=== PATIENT | female | born 1955 | race Caucasian/White ===

== ENCOUNTER 2024-06-25 12:03 | Emergency (ER) | payer MEDICARE, SELFPAY ==
--- NOTE | 2024-06-25 12:00 | RT.EKG_ITS ---
APPROVED REPORT Exam: Resting ECG Reason for Exam: weakness Patient Location: E HR:52 bpm ECG Measurements Heart Rate 52 AXIS HI 140 P 0 QRSd 91 QRS 31 QT 447 T 74 QTc 417 Conclusion Sinus bradycardia...rate< 60 Narrow complex sinus bradycardia rate of 52. Normal axis. Intervals within normal limits. T wave i nversion in aVL. No ST segment abnormalities. No prior for comparison. No acute injury pattern.
[2024-06-25 12:06] VITALS: BP 109/61; PULSE 57; RESP 18; TEMP 36.7; O2SAT 97
--- NOTE | 2024-06-25 12:09 | W.ED.GENAD ---
Discharge Plan Disposition Patient Disposition: Eloped Condition: Stable Discharge Details Clinical Impression: Malaise Primary Care Provider: None,None ED Provider: Servando Barraza Home Meds and New Rx's Prescriptions: No Action No Known Home Meds Discharge Instructions Additional Instructions: Patient ripped out her own IV, was screaming and irate asked for other IV to be removed which was and then eloped without telling anyone. Discharge Data Discharge Date/Time-TO BE ENTERED AT DEPARTURE: 06/25/24 14:30 HPI General Date/Time Provider Initiated Documentation: 06/25/24 12:09. HPI Narrative: 69 year-old female presents to ED today by EMS with a chief complaint of generalized weakness, constellation of complaints ranging from abdominal pain, to two weeks of chest pain with exertion (but not today), nausea without intractable vomiting, headaches, and social complaints about housing, questions whether it started after being placed in a rental in [place] in the remote past which had cat urine soaked floors. Quality described as generalized weakness, shortness of breath, chest pain that has subsided, no radiation to fever, intractable nausea/vomiting, severe chest pain, profound shortness of breath, syncope, urinary retention, dysuria, constipation, diarrhea, black stools. Severity is described as severe. Palliating factors include nothing specific. Provoking factors include nothing specific. Events leading up to the incident/Associated Symptoms: Patient has not seen PCP in over one year, has bounced around from [place] to [place], to [place], and has been back in the [facility] for 1.5 weeks. Patient not anticoagulated. Related Data Home Medications ?Medication ?Instructions ?Recorded ?Confirmed Unknown [No Known Home Meds] 06/25/24 06/25/24 Allergies Allergy/AdvReac Type Severity Reaction Status Date / Time No Known Allergies Allergy Unverified 06/25/24 12:53 Review of Systems All systems reviewed & are unremarkable except as noted in HPI and below Exam Narrative Exam Narrative: GENERAL APPEARANCE: Well-nourished, non-toxic, awake and alert, atraumatic, no acute distress. SKIN: Warm, pink, dry, intact, without rashes/lesions/ulcerations. HEAD: Normocephalic, atraumatic, normal hair distribution for gender/age. EYES: Normal conjunctiva, no exudates on lids/lashes. ENT: Nares patent, no circumoral cyanosis, no facial swelling NECK: Supple, trachea midline, painless cervical ROM. LUNGS/CHEST: Lungs CTA bilaterally, non-labored respirations, normal A/P diameter, symmetrical expansion, no chest wall deformity HEART (CV/PV): Regular rate and rhythm without murmur, no peripheral edema, no JVD. ABDOMEN: Soft, non-distended, no guarding. MSK: Normal ROM, no swelling/deformity to bilateral UEs or LEs, moving all extremities without weakness, no cyanosis, spine midline without tenderness, normal curvature. NEURO: Mental Status AAOx4 - alert to person, place, time, events No facial droop, no forehead involvement. Motor: No focal weakness - strength 5/5 in bilateral UEs and LEs, proximal and distal, symmetric. Sensory: sensation intact to light touch globally. Gait normal: patient ambulated without ataxia into ED room. PSYCH: euthymic, cooperative, pleasant, appropriate speech Medical Decision Making This dictation utilizes [id number] dictation software and may contain unedited grammatical errors. 69 year-old female presents to ED today by EMS with a chief complaint of generalized weakness, constellation of complaints ranging from abdominal pain, to two weeks of chest pain with exertion (but not today), nausea without intractable vomiting, headaches, and social complaints about housing, questions whether it started after being placed in a rental in [place] in the remote past which had cat urine soaked floors. Quality described as generalized weakness, shortness of breath, chest pain that has subsided, no radiation to fever, intractable nausea/vomiting, severe chest pain, profound shortness of breath, syncope, urinary retention, dysuria, constipation, diarrhea, black stools. Severity is described as severe. Palliating factors include nothing specific. Provoking factors include nothing specific. Events leading up to the incident/Associated Symptoms: Patient has not seen PCP in over one year, has bounced around from [place] to [place], to [place], and has been back in the [facility] for 1.5 weeks. Patients' medical history: Outside record search-COPD, hyperlipidemia, diverticulosis, anxiety, insomnia, PTSD, postconcussion syndrome, nicotine dependence. Family and social history: recently moved to [place] back in [place] from [place], [facility]- was residing at a facility called [facility] [place] area- does not have PCP. Meds per outside record search: Clonazepam 0.5 mg 1 tablet daily, pantoprazole 40 mg p.o. daily, Rabeprazole 20 mg p.o. daily as needed, Tylenol 500 p.o. every 6 hours Allergies per outside record search: Morphine, egg, codeine, peanut, sulfa drugs, lactase, tree nuts, doxycycline Pertinent exam findings / vital signs include neuro intact, diffuse abdominal tenderness without peritoneal signs, benign cardiopulmonary status, nontoxic vitals, afebrile, sitting on the edge of the bed. Differential / pathologies of concern include generalized malaise, weakness, demand ischemia, sepsis, biliary colic, rhabdomyolysis, alcohol withdrawal, hepatic encephalopathy, electrolyte abnormality, dehydration, UTI, viral respiratory infection, social issues. Diagnostic studies of: -CBC, CMP, serial troponins, CK, lipase, lactate, procalcitonin, VBG, alcohol level, ammonia level, magnesium, urinalysis, COVID/flu/RSV PCR, XR chest, CT ABD/pelvis W contrast, EKG. -CBC shows no leukocytosis, no anemia -VBG is completely benign -CMP is unremarkable -Ammonia negative -Troponin negative with reliable onset -Lipase negative -Lactate and procalcitonin negative -Alcohol level negative -Fluvid PCR swab negative -CT ABD/pelvis shows no acute pathology -XR chest shows no acute pathology -EKG without ischemic changes -UA negative for infection Interventions of: -IV Tylenol, IV Toradol, IV ondansetron, IV fluids. ED Course/Assessment/Plan: 69-year-old female presents with nonspecific constellation of complaints, do not suspect any acute pathology based on patient's history, she has moved around quite a bit and has been seen at multiple facilities. Labs are reassuring, imaging is totally negative, as I was getting ready to let the patient know this good news of her negative workup she ripped out her IV and started screaming at nursing staff while sitting on the floor, she asked for her other IV feed to be removed which was shortly after that she eloped without telling anyone. Findings not consistent with sepsis, acute emergent abdominal pathology, ACS, biliary colic, UTI. Disposition of Malaise. Patient verbalized understanding of the plan and return to ED criteria and engaged in shared decision making. Medical Records Medical records reviewed: Yes I reviewed the patient's medical records. Imaging Data Radiologic Study: Attestation: I personally reviewed and interpreted this imaging study as follows: Imaging: X-Ray Radiologist's impression: EXAM: XR CHEST 2V PA LATERAL CLINICAL HISTORY: chest pain TECHNIQUE: 2D digital imaging was performed. Two views. COMPARISON: No exams were available for comparison FINDINGS: HEART: Normal size. Aorta: Not dilated. PULMONARY VASCULATURE: Normal. MEDIASTINUM: Unremarkable. LUNGS: Hyperinflated but clear. PLEURAL SPACE: No pleural effusion or pneumothorax. BONE:Unremarkable for age. SOFT TISSUES: Unremarkable. IMPRESSION: No acute abnormality. Radiologic Study #2: Attestation: I personally reviewed and interpreted this imaging study as follows: Imaging: CT Scan Radiologist's impression: EXAM: CT ABDOMEN PELVIS W CLINICAL HISTORY: abdominal tenderness, RLQ. TECHNIQUE: Imaging Protocol: Axial computed tomography images with coronal and sagittal reformatted images were created and reviewed CONTRAST MATERIAL: Intravenous: Omnipaque 350 Contrast volume:83 ml Oral: no COMPARISON: CR XR CHEST 2V PA LATERAL from 06/25/2024 FINDINGS: ABDOMEN and PELVIS: Lung Bases: No acute findings. Liver: Normal density. No suspicious mass. Gallbladder and biliary tract: No radiodense calculus. No biliary dilation. Pancreas: Normal density. No abnormal calcifications or inflammatory process. No evidence of mass. Spleen: Normal. Kidneys: Normal size, contour and axis. No radiodense stones. No obstructive uropathy. No suspicious masses seen. Adrenal glands: No masses seen. Vasculature: Abdominal aorta non-dilated. Soft tissues: Unremarkable. Bladder: Empty. Not well evaluated. Bowel: No obstruction. No bowel wall thickening. Appendix normal. Mild sigmoid diverticulosis. No evidence of diverticulitis. Normal quantity of stool. Peritoneal cavity: No ascites. No focal collection. No mesenteric inflammatory response. Bones: Unremarkable for age. Reproductive organs: Status post hysterectomy. Lymph nodes: No pathologically enlarged lymph nodes. IMPRESSION:: No acute abnormality in the abdomen or pelvis. Lab Data Lab results reviewed: Yes I reviewed the patient's lab results. Labs: Laboratory Tests Range/Units 06/25/24 06/25/24 06/25/24 12:27 12:38 13:02 WBC (4.4-10.8) 10^3/uL 4.40 RBC (3.93-5.22) 10^6/uL 3.92 L Hgb (11.2-15.7) g/dL 11.8 Hct (36.0-46.0) % 37.1 MCV (80-95) fL 95 MCH (27.0-33.0) pg 30.1 MCHC (32.0-36.0) % 31.8 L RDW (11.7-14.6) % 14.9 H Plt Count (130-400) 10^3/uL 226 MPV (8.0-11.0) fL 11.0 Immature Gran % % 0.2 Neutrophils % % 56.0 Lymphocytes % % 22.0 Monocytes % % 14.3 Eosinophils % % 6.1 Basophils % % 1.4 Nucleated RBC % (0.0-0.3) % 0.0 Absolute Neutrophils (1.2-6.7) 10^3/uL 2.46 Absolute Lymphocytes (1.2-3.4) 10^3/uL 0.97 L Absolute Monocytes (0.1-0.8) 10^3/uL 0.63 Absolute Eosinophils (0.0-0.7) 10^3/uL 0.27 Absolute Basophils (0.0-0.2) 10^3/uL 0.06 VBG pH (7.31-7.41) 7.37 VBG pCO2 (41-51) mmHg 42 VBG pO2 mmHg 31 VBG HCO3 (23-28) mmol/L 24 VBG Total CO2 (24-29) mmol/L 26 VBG O2 Saturation % 58 VBG Base Excess (-2-3) mmol/L -1 VBG Lactate (0.6-1.4) mmol/L 0.9 Sodium (136-145) mmol/L 140 Potassium (3.5-5.1) mmol/L 4.1 Chloride (98-107) mmol/L 104 Carbon Dioxide (21.0-32.0) mmol/L 26.4 Anion Gap (3-11) mmol/L 9.6 BUN (7-18) mg/dL 16 Creatinine (0.55-1.02) mg/dL 1.1 H Est GFR (CKD-EPI 2020) (mL/min/1.73m2) 54.73 Glucose (74-106) mg/dL 91 Calcium (8.5-10.1) mg/dL 9.8 Magnesium (1.8-2.4) mg/dL 2.1 Total Bilirubin (0.2-1.0) mg/dL 0.34 AST (15-37) U/L 19 ALT (14-59) U/L 19 Alkaline Phosphatase (46-116) U/L 76 Ammonia (11-32) umol/L 10 L Creatine Kinase (26-192) U/L 74 Troponin I (<or=51) ng/L 7 Total Protein (6.4-8.2) g/dL 7.3 Albumin (3.4-5.0) g/dL 3.9 Lipase (16-77) U/L 37 Procalcitonin ng/mL < 0.1 Urine Color (Yellow) Urine Clarity (Clear) Urine pH (5-8) Ur Specific [place] (1.005-1.025) Urine Protein (Neg-Trace) mg/dL Urine Ketones (Negative) mg/dL Urine Blood (Negative) Urine Nitrite (Negative) Urine Bilirubin (Negative) Urine Urobilinogen (Up to 0.2) mg/dL Ur Leukocyte Esterase (Negative) Urine RBC (0-2) HPF Urine WBC (0-5) HPF Ur Epithelial Cells (Negative) HPF Urine Crystals (Negative) HPF Urine Bacteria (Negative) HPF Urine Casts (Negative) LPF Urine Mucus (Negative) Ur Culture Indicated? Urine Glucose (Negative) mg/dL Ethyl Alcohol (<10) mg/dL < 3.0 COVID-19 Source Nasopharynx SARS-CoV-2 (PCR) (Negative) Negative Influenza Type A (PCR) (Negative) Negative Influenza Type B (PCR) (Negative) Negative RSV (PCR) (Negative) Negative Range/Units 06/25/24 06/25/24 06/25/24 13:24 14:00 15:17 WBC (4.4-10.8) 10^3/uL RBC (3.93-5.22) 10^6/uL Hgb (11.2-15.7) g/dL Hct (36.0-46.0) % MCV (80-95) fL MCH (27.0-33.0) pg MCHC (32.0-36.0) % RDW (11.7-14.6) % Plt Count (130-400) 10^3/uL MPV (8.0-11.0) fL Immature Gran % % Neutrophils % % Lymphocytes % % Monocytes % % Eosinophils % % Basophils % % Nucleated RBC % (0.0-0.3) % Absolute Neutrophils (1.2-6.7) 10^3/uL Absolute Lymphocytes (1.2-3.4) 10^3/uL Absolute Monocytes (0.1-0.8) 10^3/uL Absolute Eosinophils (0.0-0.7) 10^3/uL Absolute Basophils (0.0-0.2) 10^3/uL VBG pH (7.31-7.41) VBG pCO2 (41-51) mmHg VBG pO2 mmHg VBG HCO3 (23-28) mmol/L VBG Total CO2 (24-29) mmol/L VBG O2 Saturation % VBG Base Excess (-2-3) mmol/L VBG Lactate (0.6-1.4) mmol/L Sodium (136-145) mmol/L Potassium (3.5-5.1) mmol/L Chloride (98-107) mmol/L Carbon Dioxide (21.0-32.0) mmol/L Anion Gap (3-11) mmol/L BUN (7-18) mg/dL Creatinine (0.55-1.02) mg/dL Est GFR (CKD-EPI 2020) (mL/min/1.73m2) Glucose (74-106) mg/dL Calcium (8.5-10.1) mg/dL Magnesium (1.8-2.4) mg/dL Total Bilirubin (0.2-1.0) mg/dL AST (15-37) U/L ALT (14-59) U/L Alkaline Phosphatase (46-116) U/L Ammonia (11-32) umol/L Creatine Kinase (26-192) U/L Troponin I (<or=51) ng/L 6 Cancelled Total Protein (6.4-8.2) g/dL Albumin (3.4-5.0) g/dL Lipase (16-77) U/L Procalcitonin ng/mL Urine Color (Yellow) Yellow Urine Clarity (Clear) Clear Urine pH (5-8) 7.0 Ur Specific [place] (1.005-1.025) 1.015 Urine Protein (Neg-Trace) mg/dL Negative Urine Ketones (Negative) mg/dL Trace H Urine Blood (Negative) Moderate H Urine Nitrite (Negative) Negative Urine Bilirubin (Negative) Negative Urine Urobilinogen (Up to 0.2) mg/dL 0.2 Ur Leukocyte Esterase (Negative) Negative Urine RBC (0-2) HPF 10-20 H Urine WBC (0-5) HPF 0-2 Ur Epithelial Cells (Negative) HPF Rare Urine Crystals (Negative) HPF Negative Urine Bacteria (Negative) HPF Few Urine Casts (Negative) LPF Negative Urine Mucus (Negative) Trace Ur Culture Indicated? No Urine Glucose (Negative) mg/dL Negative Ethyl Alcohol (<10) mg/dL COVID-19 Source SARS-CoV-2 (PCR) (Negative) Influenza Type A (PCR) (Negative) Influenza Type B (PCR) (Negative) RSV (PCR) (Negative) Quality:SDOH Health Related Social Needs: Health related social needs material hardship, food insecurity, transpo insecurity PFSH All Active Problems (Updated 06/25/24 @ 14:42 by ANAND Chawla) Malaise (Acute) Social History Smoking/Tobacco Use Status: Never Smoking risk assessment performed?: Yes Alcohol Intake: never Drug use: Daily Substance use type: marijuana
[2024-06-25 12:11] VITALS: BP 109/61; PULSE 57; RESP 18; TEMP 36.7; O2SAT 97
--- NOTE | 2024-06-25 12:15 | DI.RAD_ITS ---
Exam(s) XR CHEST 2V PA LATERAL EXAM: XR CHEST 2V PA LATERAL CLINICAL HISTORY: chest pain TECHNIQUE: 2D digital imaging was performed. Two views. COMPARISON: No exams were available for comparison FINDINGS: HEART: Normal size. Aorta: Not dilated. PULMONARY VASCULATURE: Normal. MEDIASTINUM: Unremarkable. LUNGS: Hyperinflated but clear. PLEURAL SPACE: No pleural effusion or pneumothorax. BONE:Unremarkable for age. SOFT TISSUES: Unremarkable. IMPRESSION: No acute abnormality. DATA REPOSITORY: RADIATION DOSE DELIVERED:
[2024-06-25 12:50] LABS: Abs Immature Grans 0.01 10^3/uL (0.0-0.06); Absolute Basophil Count 0.06 10^3/uL (0.0-0.2); Absolute Eosinophil Count 0.27 10^3/uL (0.0-0.7); Absolute Lymphocyte Count 0.97 10^3/uL (1.2-3.4); Absolute Monocyte Count 0.63 10^3/uL (0.1-0.8); Absolute Neutrophil Count 2.46 10^3/uL (1.2-6.7); Basophils % 1.4 %; Eosinophils % 6.1 %; HCT 37.1 % (36.0-46.0); HGB 11.8 g/dL (11.2-15.7); Immature Grans % 0.2 %; MCH 30.1 pg (27.0-33.0); MCHC 31.8 % (32.0-36.0); MCV 95 fL (80-95); Monocytes % 14.3 %; Platelet Count 226 10^3/uL (130-400); RBC 3.92 10^6/uL (3.93-5.22); RDW 14.9 % (11.7-14.6)
[2024-06-25] MEDS: ACETAMINOPHEN 1,000 MG/100 ML BTL 400 MG IVPB (12:51)
[2024-06-25] MEDS: Ketorolac 15 MG/ML VIAL IVP (12:51)
[2024-06-25] MEDS: Normal Saline 1,000 ML 1000 ML IV (12:52)
[2024-06-25] MEDS: Ondansetron O.D.T. 4 MG TABEF PO (12:52)
[2024-06-25 12:53] LABS: BE (Venous) -1 mmol/L (-2-3); HCO3 (Venous) 24 mmol/L (23-28); Lactate 0.9 mmol/L (0.6-1.4); O2 Sat (Venous) 58 %; TCO2 (Venous) 26 mmol/L (24-29); pCO2 (Venous) 42 mmHg (41-51); pH (Venous) 7.37 (7.31-7.41); pO2 (Venous) 31 mmHg
[2024-06-25 13:14] LABS: ALT 19 U/L (14-59); AST 19 U/L (15-37); Albumin 3.9 g/dL (3.4-5.0); Alkaline Phosphatase 76 U/L (46-116); Anion Gap 9.6 mmol/L (3-11); BUN 16 mg/dL (7-18); Bilirubin, Total 0.34 mg/dL (0.2-1.0); CO2 26.4 mmol/L (21.0-32.0); CREATININE 1.1 mg/dL (0.55-1.02); Calcium 9.8 mg/dL (8.5-10.1); Chloride 104 mmol/L (98-107); Creatine Kinase 74 U/L (26-192); ETHANOL BLOOD < 3.0 mg/dL (<10); Estimated GFR 54.73 (mL/min/1.73m2); Glucose 91 mg/dL (74-106); Lipase 37 U/L (16-77); Magnesium 2.1 mg/dL (1.8-2.4); Potassium 4.1 mmol/L (3.5-5.1); Sodium 140 mmol/L (136-145); Total Protein 7.3 g/dL (6.4-8.2); Troponin I 7 ng/L (<or=51)
[2024-06-25 13:21] LABS: Ammonia 10 umol/L (11-32)
[2024-06-25 13:31] LABS: Bilirubin Negative (Negative); Blood Moderate (Negative); Clarity Clear (Clear); Glucose Negative (Negative); Ketones Trace mg/dL (Negative); Leukocyte Esterase Negative (Negative); Nitrite Negative (Negative); Specific Gravity 1.015 (1.005-1.025); Urobilinogen 0.2 mg/dL (Up to 0.2)
[2024-06-25] MEDS: Omnipaque 350 MG/ML 100 ML BTL IJ (13:36)
[2024-06-25] MEDS: Normal Saline - Diluent 50 ML VIAL IJ (13:38)
[2024-06-25 13:41] LABS: Procalcitonin < 0.1 ng/mL
[2024-06-25 13:41] LABS: COVID-19 PCR Negative (Negative); Influenza A PCR Negative (Negative); Influenza B PCR Negative (Negative); RSV PCR Negative (Negative)
[2024-06-25 13:42] LABS: Source Nasopharynx
[2024-06-25 13:43] LABS: Bacteria Few HPF (Negative); C & S Indicated? No; Casts Negative LPF (Negative); Crystals Negative HPF (Negative); Epithelial Cells Rare HPF (Negative); Mucus Trace (Negative); WBC 0-2 HPF (0-5)
--- NOTE | 2024-06-25 13:45 | DI.CT_ITS ---
Exam(s) CT ABDOMEN PELVIS W EXAM: CT ABDOMEN PELVIS W CLINICAL HISTORY: abdominal tenderness, RLQ. TECHNIQUE: Imaging Protocol: Axial computed tomography images with coronal and sagittal reformatted images were created and reviewed CONTRAST MATERIAL: Intravenous: Omnipaque 350 Contrast volume:83 ml Oral: no COMPARISON: CR XR CHEST 2V PA LATERAL from 06/25/2024 FINDINGS: ABDOMEN and PELVIS: Lung Bases: No acute findings. Liver: Normal density. No suspicious mass. Gallbladder and biliary tract: No radiodense calculus. No biliary dilation. Pancreas: Normal density. No abnormal calcifications or inflammatory process. No evidence of mass. Spleen: Normal. Kidneys: Normal size, contour and axis. No radiodense stones. No obstructive uropathy. No suspicious masses seen. Adrenal glands: No masses seen. Vasculature: Abdominal aorta non-dilated. Soft tissues: Unremarkable. Bladder: Empty. Not well evaluated. Bowel: No obstruction. No bowel wall thickening. Appendix normal. Mild sigmoid diverticulosis. No evidence of diverticulitis. Normal quantity of stool. Peritoneal cavity: No ascites. No focal collection. No mesenteric inflammatory response. Bones: Unremarkable for age. Reproductive organs: Status post hysterectomy. Lymph nodes: No pathologically enlarged lymph nodes. IMPRESSION:: No acute abnormality in the abdomen or pelvis. RADIATION DOSE DELIVERED: 268.47mGy.cm Total DLP DATA REPOSITORY: All CT scans at this facility are submitted to the National Radiology Data Registry (NRDR) Dose Index Registry (DIR) with the [employer] (ACR). RADIATION OPTIMIZATION: All CT scans at this facility use at least one of these dose optimization te chniques: automated exposure control; mA and/or kV adjustment per patient size (includes targeted exa ms where dose is matched to clinical indication); or iterative reconstruction.
[2024-06-25 14:22] LABS: Troponin I 6 ng/L (<or=51)
== END 2024-06-25 14:30 | disposition left against medical advice (07) ==
LOC: ER 13:03
PROVIDERS: Emergency Provider Physician Assistant
DX: R53.81 Other malaise (principal); R00.1 Bradycardia, unspecified; Z53.29 Procedure and treatment not carried out because of patient's decision for other reasons
CPT/HCPCS: 36415; 80053; 82550; 82805; 83690; 84145; 87637; 93005; 96374; 96375; 99285; 71046; 74177; 80320; 81003; 81015; 82140; 83605; 83735; 84484; 85025; 93010; 99284; J0131; J1885; J3490

== ENCOUNTER 2024-07-05 13:46 | Emergency (ER) | payer MEDICARE, SELFPAY ==
--- NOTE | 2024-07-05 13:45 | RT.EKG_ITS ---
APPROVED REPORT Exam: Resting ECG Reason for Exam: Chest pain Patient Location: E HR:69 bpm ECG Measurements Heart Rate 69 AXIS WY 154 P 67 QRSd 96 QRS 17 QT 405 T 51 QTc 433 Conclusion Sinus rhythm...normal P axis, V-rate 60- 99 Low voltage, precordial leads...precordial leads <1.0mV
[2024-07-05 13:49] VITALS: BP 124/69; PULSE 80; RESP 16; TEMP 36.4; O2SAT 98
--- NOTE | 2024-07-05 15:00 | ED.GENADUL_ITS ---
Discharge Plan Disposition Patient Disposition: Home Condition: Stable Discharge Details Chief Complaint: GenMedical Clinical Impression: Chronic pain, Need for follow-up by licensed social worker Primary Care Provider: None,None ED Provider: Juan Handley Home Meds and New Rx's Prescriptions: No Action No Known Home Meds Discharge Instructions Additional Instructions: I placed on her care management list to try and assist with community resources I also placed on the follow-up list to try and see a primary care provider If you feel more ill or feel you are suffering from emergent medical process return to the emergency department for reevaluation HPI General Mode of arrival: ambulatory . Date/Time Provider Initiated Documentation: 07/05/24 13:58 . Limitations to Documentation: no limitations . Information obtained by: patient . History of Present Illness 69 year old F presents to the emergency department with the chief complaint of chronic pain, needs pcp and community resources, Patient started experiencing this week(s) (2) and it has been constant. No relieving factors improve symptom(s), No exacerbating factors reported . Patient notes denies chest pain and shortness of breath. Patient did receive the following treatments prior to arrival, none Related Data Home Medications ?Medication ?Instructions ?Recorded ?Confirmed Unknown [No Known Home Meds] 06/25/24 06/25/24 Allergies Allergy/AdvReac Type Severity Reaction Status Date / Time No Known Allergies Allergy Unverified 06/25/24 12:53 General Stated Complaint: GenMedical MANDIE: 3 Review of Systems All systems reviewed & are unremarkable except as noted in HPI and below Constitutional Constitutional: Denies chills and Denies fever(s) Cardiovascular Cardiovascular: Denies chest pain and Denies dyspnea Respiratory Respiratory: Denies cough and Denies dyspnea Gastrointestinal Gastrointestinal: Denies abdominal pain, Denies nausea and Denies vomiting Musculoskeletal Musculoskeletal: Denies joint swelling Exam Const General: no acute distress Orientation: alert HENMT Head: normal to inspection Ears: external ears normal General nose exam: external nose normal Mouth: moist mucous membranes Eyes General: appearance normal, both eyes and all related structures Neck Neck: normal visual inspection Resp Effort & Inspection: normal respiratory effort and able to speak in complete sentences Cardio Rate: regular rate Skin General skin exam: no rashes or lesions noted Neuro General: patient alert and patient oriented x3 Extrem General: normal to inspection Psych Mental Status: mental status grossly normal Course Vital Signs Vital signs: Vital Signs Temperature 36.4 C L 07/05/24 13:49 Pulse 80 07/05/24 13:49 Respiratory Rate 16 07/05/24 13:49 Blood Pressure 124/69 07/05/24 13:49 Pulse Oximetry 98 07/05/24 13:49 Temperature 36.4 C L 07/05/24 13:49 Temperature Source Tympanic 07/05/24 13:49 Pulse 80 07/05/24 13:49 Respiratory Rate 16 07/05/24 13:49 Blood Pressure 124/69 07/05/24 13:49 Blood Pressure Position Sitting 07/05/24 13:49 Pulse Oximetry 98 07/05/24 13:49 Oxygen Delivery Method Room Air 07/05/24 13:49 Oxygen Flow Rate 0 07/05/24 13:49 Pain Level 9 07/05/24 13:49 Medical Decision Making 69-year-old female who states she recently moved to the area 2 weeks ago as she was having issues with finding housing which she has been able to do. She was seen on the with vague symptoms with no acute findings on the eloped. She came here today to go over results and also requested evaluation for social work and outpatient resources with care management. She denies any new symptoms, she that she suffers from chronic pain from prior rib fractures and compression fractures. She denies any new falls or trauma. She denies any current chest pain or difficulty breathing. She is alert and x 4 and tearful. She denies any SI or homicidal ideations. She has no focal neurological deficits. After discussion with her she does not want to stay for any further testing or close is reasonable given her symptoms seem chronic. She would be interested in having care management reach out to her to help with several things 1 of which being set up with palliative care for her chronic pain, also establishing with a primary care provider and being given resources to help with things in the home such as helping with food and cleaning. She says she has a ride coming at 3 and cannot wait to meet with them in person but I said I would put her on a follow- up list to try and have career placement specialist reach out to her. Return precautions given Medical Records Medical records reviewed: Yes I reviewed the patient's medical records. ECG Data Attestation: I personally reviewed and interpreted this ECG (s) as follows: Prior ECG tracings: available for review Interpretation: sinus rate of 69 pr 154 no stemi Quality:SDOH Health Related Social Needs: Health related social needs material hardship, food in security, transpo insecurity PFSH All Active Problems (Updated 07/05/24 @ 15:02 by Juan Handley MD) Need for follow-up by licensed social worker (Acute) Chronic pain (Chronic) Malaise (Acute) Social History Smoking/Tobacco Use Status: Never Smoking risk assessment performed?: Yes Alcohol Intake: never Drug use: Daily Substance use type: marijuana
== END 2024-07-05 15:09 | disposition home or self-care (01) ==
PROVIDERS: Emergency Provider Emergency Medicine
DX: G89.29 Other chronic pain (principal); R11.0 Nausea
CPT/HCPCS: 93005; 99283; 93010

== ENCOUNTER 2024-08-05 03:05 | Outpatient (CLI) | payer MEDICARE, SELFPAY ==
[2024-08-05 13:16] LABS: Calculated LDL 104 mg/dL (<100); Cholesterol 203 mg/dL (<200); HDL Cholesterol 81 mg/dL (40-60); TSH (W/Ref FT4) 2.18 uIU/mL (0.36-3.74); Triglyceride 94 mg/dL (<150)
== END 2024-08-05 03:06 | disposition home or self-care (01) ==
LOC: LBO 03:05
PROVIDERS: Referring Provider Nurse Practitioner Family; Visit Provider Nurse Practitioner Family
DX: R53.83 Other fatigue (principal); E78.5 Hyperlipidemia, unspecified
CPT/HCPCS: 36415; 80061; 84443

== ENCOUNTER 2024-08-19 02:10 | Outpatient (CLI) | payer MEDICARE, SELFPAY ==
[2024-08-19] MEDS: Methacholine 100 MG VIAL IH (16:35)
[2024-08-19] MEDS: Albuterol HFA 18 GM 200 PUFF INH IH (16:35)
[2024-08-19] MEDS: Inhaler, Assist Device 1 EACH MC (16:36)
--- NOTE | 2024-08-20 09:54 | PFT_ITS ---
Date of service: 08/19/24 Time of Service: 14:55 Pulmonary Function Test Result Indications: Chest tightness Interpretation Spirometry: No baseline airflow limitation. There was a 30% decrease in FEV1 with adminis tration of 0.5mg/mL methacholine. Impression Positive methacholine challenge. Clinical Correlation therefore is recommended.
== END 2024-08-19 02:11 | disposition home or self-care (01) ==
LOC: RT 02:11
PROVIDERS: PCP Nurse Practitioner Family; Visit Provider Student in an Organized Health Care Education/Training Program
DX: J44.9 Chronic obstructive pulmonary disease, unspecified (principal); R07.9 Chest pain, unspecified
CPT/HCPCS: 94060; 94070; J7674